=== PATIENT | female | born 1930 | race Caucasian/White ===

== ENCOUNTER 2018-08-19 21:51 | Emergency (ER) | payer MEDICARE, BC ==
[~2018-08-19] VITALS: Ht 170.2 cm; Wt 63.6 kg
[2018-08-19 21:58] VITALS: Ht 170.2 cm; Wt 63.6 kg
[2018-08-19] MEDS ORDERED: PREDNISONE20 MG PO (23:29)
[2018-08-19] MEDS ORDERED: ATARAX 25 MG TA25 MG PO (23:29)
[2018-08-20 00:02] VITALS: BP 123/77
== END 2018-08-20 00:07 | disposition home or self-care (01) ==
LOC: D.ER 21:51
DX: L27.0 Generalized skin eruption due to drugs and medicaments taken internally (principal); T42.6X5A Adverse effect of other antiepileptic and sedative-hypnotic drugs, initial encounter; Y92.9 Unspecified place or not applicable